=== PATIENT | male | born 1985 | race African-American/Black ===

== ENCOUNTER 2021-09-02 00:45 | Inpatient (IN) | payer SELFPAY ==
[~2021-09-02] VITALS: Ht 175.3 cm; Wt 74.9 kg
[2021-09-02] MEDS ORDERED: ONDANSETRON PF 4 MG/2 ML VIAL. ONE (00:59)
[2021-09-02] MEDS ORDERED: ONDANSETRON PF 4 MG/2 ML VIAL. IVP ONE (01:00)
[2021-09-02] MEDS ORDERED: IV NORMAL SALINE 1000ML BAG 1,000 ML IV ONE ×2 (01:00→02:00)
--- NOTE | 2021-09-02 01:13 | PHYS DOC ---
Past Medical History Past Medical History: COPD, Diabetes-Type I Alcohol Use: Occasionally General Adult EDM: Chief Complaint: SEIZURE HPI: HPI: Patient is a 35 year old male who was brought here by EMS from home after he was found unresponsive on the floor. Patient'S girlfriend said patient was on the floor acting like he was having a seizure. He was pale and sweaty, patient said he was in his bed tonight, he felt hot flushed. He thought that his blood sugar was low so he got up to go to the kitchen to get something to eat when he woke up from the floor. Patient is complaining of right-sided facial pain, some pain inside his mouth. Patient denies any history of seizure disorder. Patient has history of diabetes, on insulin. EMS checked his blood sugar and it was 103. Patient said he had have nausea vomiting and diarrhea off and on for 1 week. Patient denies any cough or fever. Patient was vaccinated for COVID-19 3 months ago. Patient denies any abdominal pain patient said he drinking alcohol every day. Patient tried to drink some beer tonight at 9 PM but vomited everything. Review of Systems: Review of Systems: Constitutional: Denies fever or chills. [] Eyes: Denies change in visual acuity. [] HENT: Denies nasal congestion or sore throat. [] Respiratory: Denies cough or shortness of breath. [] Cardiovascular: Denies chest pain or edema. [] GI: Denies abdominal pain, positive for nausea vomiting diarrhea : Denies dysuria. [] Musculoskeletal: Denies back pain or joint pain. [] Integument: Denies rash. [] Neurologic: Denies headache, focal weakness or sensory changes. Positive for seizure history Endocrine: Denies polyuria or polydipsia. [] Lymphatic: Denies swollen glands. [] Psychiatric: Denies depression or anxiety. [] Heart Score: C/O Chest Pain: N/A Risk Factors: Risk Factors: DM, Current or recent (<one month) smoker, HTN, HLP, family history of CAD, obesity. Risk Scores: Score 0 - 3: 2.5% MACE over next 6 weeks - Discharge Home Score 4 - 6: 20.3% MACE over next 6 weeks - Admit for Clinical Observation Score 7 - 10: 72.7% MACE over next 6 weeks - Early Invasive Strategies Current Medications: Current Medications Medications (Trade) Dose Ordered Sig/Annamarie Start Time Stop Time Status Last Admin Dose Admin Ondansetron HCl (Zofran) 4 mg STK-MED ONCE 09/02/21 00:59 09/02/21 01:00 DC Sodium Chloride 1,000 ml @ 1,000 mls/hr 1X ONCE 09/02/21 01:00 09/02/21 01:59 09/02/21 01:09 1,000 MLS/HR Allergies: Allergies: Allergies Coded Allergies Type Severity Reaction Last Updated Verified No Known Drug Allergies 09/02/21 No Physical Exam: PE: Constitutional: Well developed, well nourished, no acute distress, non-toxic appearance. [] HENT: Normocephalic, atraumatic, bilateral external ears normal, oropharynx moist, no oral exudates, nose normal. Right anterior lateral tongue abrasion Eyes: PERRLA, EOMI, conjunctiva normal, no discharge. [] Neck: Normal range of motion, no tenderness, supple, no stridor. [] Cardiovascular: Sinus tachycardia, regular rhythm, no murmur [] Lungs & Thorax: Bilateral breath sounds clear to auscultation [] Abdomen: Bowel sounds normal, soft, no tenderness, no masses, no pulsatile masses. [] Skin: Warm, dry, no erythema, no rash. [] Back: No tenderness, no CVA tenderness. [] Extremities: No tenderness, no cyanosis, no clubbing, ROM intact, no edema. [] Neurologic: Alert and oriented X 3, normal motor function, normal sensory function, no focal deficits noted. [] Psychologic: Affect normal, judgement normal, mood normal. [] Current Patient Data: Labs: Laboratory Tests Test 09/02/21 01:10 09/02/21 02:16 09/02/21 03:55 White Blood Count 10.1 x10^3/uL Red Blood Count 4.60 x10^6/uL Hemoglobin 13.8 g/dL Hematocrit 40.6 % Mean Corpuscular Volume 88 fL Mean Corpuscular Hemoglobin 30 pg Mean Corpuscular Hemoglobin Concent 34 g/dL Red Cell Distribution Width 12.7 % Platelet Count 247 x10^3/uL Neutrophils (%) (Auto) 74 % Lymphocytes (%) (Auto) 18 % Monocytes (%) (Auto) 6 % Eosinophils (%) (Auto) 2 % Basophils (%) (Auto) 0 % Neutrophils # (Auto) 7.5 x10^3/uL Lymphocytes # (Auto) 1.9 x10^3/uL Monocytes # (Auto) 0.6 x10^3/uL Eosinophils # (Auto) 0.2 x10^3/uL Basophils # (Auto) 0.0 x10^3/uL Sodium Level 138 mmol/L Potassium Level 3.8 mmol/L Chloride Level 101 mmol/L Carbon Dioxide Level 27 mmol/L Anion Gap 10 Blood Urea Nitrogen 20 mg/dL Creatinine 1.2 mg/dL Estimated GFR (Cockcroft-Gault) 83.4 BUN/Creatinine Ratio 17 Glucose Level 97 mg/dL Calcium Level 9.2 mg/dL Magnesium Level 1.8 mg/dL Total Bilirubin 0.3 mg/dL Aspartate Amino Transf (AST/SGOT) 33 U/L Alanine Aminotransferase (ALT/SGPT) 41 U/L Alkaline Phosphatase 70 U/L Troponin I Quantitative < 0.017 ng/mL CU-[id number]-[id number]-Type Natriuretic Peptide 27 pg/mL Total Protein 7.7 g/dL Albumin 3.9 g/dL Albumin/Globulin Ratio 1.0 Ethyl Alcohol Level < 10 mg/dL SARS-CoV-2 Antigen (Rapid) Negative Urine Opiates Screen Neg Urine Methadone Screen Neg Urine Barbiturates Neg Urine Phencyclidine Screen Neg Urine Amphetamine/Methamphetamine Neg Urine Benzodiazepines Screen Neg Urine Cocaine Screen Pos Urine Cannabinoids Screen Pos Urine Ethyl Alcohol Neg Current Medications Medications (Trade) Dose Ordered Sig/Annamarie Route PRN Reason Start Time Stop Time Status Last Admin Dose Admin Ondansetron HCl (Zofran) 8 mg 1X ONCE IVP 09/02/21 01:00 09/02/21 01:01 DC 09/02/21 01:10 Sodium Chloride 1,000 ml @ 1,000 mls/hr 1X ONCE IV 09/02/21 01:00 09/02/21 01:59 DC 09/02/21 01:09 Ondansetron HCl (Zofran) 4 mg STK-MED ONCE .ROUTE 09/02/21 00:59 09/02/21 01:00 DC Sodium Chloride 1,000 ml @ 1,000 mls/hr 1X ONCE IV 09/02/21 02:00 09/02/21 02:59 DC 09/02/21 02:13 Lorazepam (Ativan Inj) 2 mg 1X ONCE IVP 09/02/21 03:45 09/02/21 03:46 DC 09/02/21 04:00 Multivitamins 10 ml/Thiamine HCl 100 mg/Folic Acid 1 mg/Sodium Chloride 1,011.2 ml @ 1,000.088 mls/hr 1X ONCE IV 09/02/21 04:00 09/02/21 05:00 09/02/21 04:05 Ondansetron HCl (Zofran) 4 mg PRN Q8HRS PRN IVP NAUSEA/VOMITING 09/02/21 04:00 09/03/21 03:59 Laboratory Tests Test 09/02/21 01:10 White Blood Count 10.1 x10^3/uL Red Blood Count 4.60 x10^6/uL Hemoglobin 13.8 g/dL Hematocrit 40.6 % Mean Corpuscular Volume 88 fL Mean Corpuscular Hemoglobin 30 pg Mean Corpuscular Hemoglobin Concent 34 g/dL Red Cell Distribution Width 12.7 % Platelet Count 247 x10^3/uL Neutrophils (%) (Auto) 74 % Lymphocytes (%) (Auto) 18 % Monocytes (%) (Auto) 6 % Eosinophils (%) (Auto) 2 % Basophils (%) (Auto) 0 % Neutrophils # (Auto) 7.5 x10^3/uL Lymphocytes # (Auto) 1.9 x10^3/uL Monocytes # (Auto) 0.6 x10^3/uL Eosinophils # (Auto) 0.2 x10^3/uL Basophils # (Auto) 0.0 x10^3/uL Sodium Level 138 mmol/L Potassium Level 3.8 mmol/L Chloride Level 101 mmol/L Carbon Dioxide Level 27 mmol/L Anion Gap 10 Blood Urea Nitrogen 20 mg/dL Creatinine 1.2 mg/dL Estimated GFR (Cockcroft-Gault) 83.4 BUN/Creatinine Ratio 17 Glucose Level 97 mg/dL Calcium Level 9.2 mg/dL Magnesium Level 1.8 mg/dL Total Bilirubin 0.3 mg/dL Aspartate Amino Transf (AST/SGOT) 33 U/L Alanine Aminotransferase (ALT/SGPT) 41 U/L Alkaline Phosphatase 70 U/L Troponin I Quantitative < 0.017 ng/mL [id number]-Type Natriuretic Peptide 27 pg/mL Total Protein 7.7 g/dL Albumin 3.9 g/dL Albumin/Globulin Ratio 1.0 Ethyl Alcohol Level < 10 mg/dL Current Medications Medications (Trade) Dose Ordered Sig/Annamarie Route PRN Reason Start Time Stop Time Status Last Admin Dose Admin Ondansetron HCl (Zofran) 8 mg 1X ONCE IVP 09/02/21 01:00 09/02/21 01:01 DC 09/02/21 01:10 Sodium Chloride 1,000 ml @ 1,000 mls/hr 1X ONCE IV 09/02/21 01:00 09/02/21 01:59 09/02/21 01:09 Ondansetron HCl (Zofran) 4 mg STK-MED ONCE .ROUTE 09/02/21 00:59 09/02/21 01:00 DC Sodium Chloride 1,000 ml @ 1,000 mls/hr 1X ONCE IV 09/02/21 02:00 09/02/21 02:59 UNV EKG: EKG: EKG was done, heart rate 103 bpm, sinus TACHYCARDIA rhythm, no ST segment ELEVATION. Radiology/Procedures: Radiology/Procedures: [][facility] [address] [place] [address] IMAGING REPORT Signed PATIENT: KAY PEMBERTON ACCOUNT: [id number] : 1985 LOCATION: ER AGE: 35 SEX: M EXAM STATUS: REG ER ORD. PHYSICIAN: MONIKA ESTRADA DO REASON: had syncope, right side facial pain PROCEDURE: CT MAXILLOFACIAL WO CONTRAST CT HEAD AND C-SPINE WO, CT MAXILLOFACIAL WITHOUT CONTRAST dated 09/02/2021 1:24 AM. Comparison: None. Clinical Indication: Reason: had a syncope, fell down, hit right side head, headache, neck pain / Spl. Instructions: / History: HEAD AND NECK PAIN Technical factors: Contiguous 5 mm axial images of the head were obtained from the skullbase to the vertex. No contrast was administered. In addition, 3 mm axi al images of the cervical spine and maxillofacial bones were acquired with thin cut coronal and sagittal reconstructions. One or more of the following individualized dose reduction techniques were utilized for this examination: 1. Automated exposure control 2. Adjustment of the mA and/or kV according to patient size 3. Use of iterative reconstruction technique Findings head: Ventricles and sulci are within normal limits for age. No evidence of ventricular shift or mass effect. Brain parenchyma is of normal attenuation. There is no evidence of hemorrhage or extra-axial collection. No apparent calvarial abnormality.. IMPRESSION HEAD: No evidence of acute intracranial abnormality. Findings maxillofacial: Orbital mortensen and maxillary mortensen are intact. No displaced facial fracture. Zygomatic arches and mandible are intact. Nasal bones are intact. Paranasal sinuses are clear. Ostiomeatal units and infundibula are patent. Mastoid air cells and middle ears are clear. No significant soft tissue abnormality. IMPRESSION MAXILLOFACIAL: 1. No evidence of displaced facial fracture. Findings cervical spine: Images were acquired from the skull base to mid T3. There is straightening of the normal cervical lordosis, otherwise sagittal alignment is anatomic. Chloe tebral body heights are maintained. No prevertebral soft tissue swelling. Posterior elements are intact. No fractures are identified. Minimal multilevel uncovertebral spurring. No apparent focal disc herniation. The bony canal and foramen are adequate. No significant soft tissue abnormality. Limited images of lung apices are clear. IMPRESSION CERVICAL SPINE: No evidence of fracture or malalignment. Electronically signed by: Will Acosta MD (09/02/2021 1:50 AM) [facility] DICTATED and SIGNED BY: WILL ACOSTA MD DATE: 09/02/21 [id number] 0 Course & Med Decision Making: Course & Med Decision Making Pertinent Labs and Imaging studies reviewed. (See chart for details) Patient is a 35-year-old male who was brought here by EMS from home after she was found unresponsive on the floor having a seizure. Patient had been having nausea vomiting and diarrhea off and on for a week. Patient was not able to keep them down. Patient is an alcoholic, he did drink some alcohol yesterday but could not keep it down. Patient is most likely have alcohol withdrawal seizure. Patient also tested positive for marijuana and cocaine. Patient will be admitted to hospital for IV fluid and IV benzodiazepine. Dragon Disclaimer: Dragon Disclaimer: This electronic medical record was generated, in whole or in part, using a voice recognition dictation system. Departure Departure Impression: Primary Impression: Alcohol withdrawal seizure Additional Impressions: Gastroenteritis Substance abuse Disposition: ADMITTED INPATIENT Admitting Physician: ALFONSO (Dr. JUSTINA GUTIERREZ) Condition: IMPROVED Referrals: NO PCP (PCP) MONIKA ESTRADA DO Sep 02, 2021 01:13
[2021-09-02 01:21] LABS: BASO % 0 % (0-3); EOS # 0.2 x10^3/uL (0.0-0.7); EOS % 2 % (0-3); HEMATOCRIT 40.6 % (39.0-53.0); HEMOGLOBIN 13.8 g/dL (13.0-17.5); LYMPH # 1.9 x10^3/uL (1.0-4.8); LYMPH % 18 % (24-48); MEAN CORPUSCULAR HEMOGLOBIN 30 pg (25-35); MEAN CORPUSCULAR HGB CONC 34 g/dL (31-37); MEAN CORPUSCULAR VOLUME 88 fL (79-100); MONO # 0.6 x10^3/uL (0.0-1.1); MONO % 6 % (0-9); NEUT # 7.5 x10^3/uL (1.8-7.7); NEUT % 74 % (31-73); PLATELET COUNT 247 x10^3/uL (140-400); RED CELL DISTRIBUTION WIDTH 12.7 % (11.5-14.5); WHITE BLOOD COUNT 10.1 x10^3/uL (4.0-11.0)
[2021-09-02 01:30] LABS: CALCIUM 9.2 mg/dL (8.5-10.1); CREATININE 1.2 mg/dL (0.7-1.3); GFR 83.4; POTASSIUM 3.8 mmol/L (3.5-5.1)
[2021-09-02 01:37] LABS: ALBUMIN 3.9 g/dL (3.4-5.0); MAGNESIUM 1.8 mg/dL (1.8-2.4); TOTAL BILIRUBIN 0.3 mg/dL (0.2-1.0); TOTAL PROTEIN 7.7 g/dL (6.4-8.2)
--- NOTE | 2021-09-02 01:53 | RAD ---
CT HEAD AND C-SPINE WO, CT MAXILLOFACIAL WITHOUT CONTRAST dated 09/02/2021 1:24 AM. Comparison: None. Clinical Indication: Reason: had a syncope, fell down, hit right side head, headache, neck pain / Spl . Instructions: / History: HEAD AND NECK PAIN Technical factors: Contiguous 5 mm axial images of the head were obtained from the skullbase to the v ertex. No contrast was administered. In addition, 3 mm axial images of the cervical spine and maxillo facial bones were acquired with thin cut coronal and sagittal reconstructions. One or more of the following individualized dose reduction techniques were utilized for this examinat ion: 1. Automated exposure control 2. Adjustment of the mA and/or kV according to patient size 3. Use of iterative reconstruction technique Findings head: Ventricles and sulci are within normal limits for age. No evidence of ventricular shift or mass effec t. Brain parenchyma is of normal attenuation. There is no evidence of hemorrhage or extra-axial colle ction. No apparent calvarial abnormality.. IMPRESSION HEAD: No evidence of acute intracranial abnormality. Findings maxillofacial: Orbital mortensen and maxillary mortensen are intact. No displaced facial fracture. Zygomatic arches and sushant ible are intact. Nasal bones are intact. Paranasal sinuses are clear. Ostiomeatal units and infundibula are patent. Mastoid air cells and midd le ears are clear. No significant soft tissue abnormality. IMPRESSION MAXILLOFACIAL: 1. No evidence of displaced facial fracture. Findings cervical spine: Images were acquired from the skull base to mid T3. There is straightening of the normal cervical jonathan dosis, otherwise sagittal alignment is anatomic. Vertebral body heights are maintained. No prevertebr al soft tissue swelling. Posterior elements are intact. No fractures are identified. Minimal multilevel uncovertebral spurring. No apparent focal disc herniation. The bony canal and fora men are adequate. No significant soft tissue abnormality. Limited images of lung apices are clear. IMPRESSION CERVICAL SPINE: No evidence of fracture or malalignment. Electronically signed by: Will Fish MD (09/02/2021 1:50 AM) [facility]
[2021-09-02] MEDS ORDERED: ONDANSETRON PF 4 MG/2 ML VIAL. IVP PRN ×2 (04:00→08:30)
[2021-09-02] MEDS ORDERED: MULTIVIT INFUSN,ADULT 4,VIT K 10 ML, THIAMINE INJ 100 MG, FOLIC ACID INJ 1 MG in IV NOR... IV ONE (04:00)
[2021-09-02 04:09] LABS: AMPHETAMINE/METHAMPHETAMINE NEG (NEG); BARBITURATES NEG (NEG); BENZODIAZEPINES NEG (NEG); CANNABINOIDS POS (NEG); COCAINE POS (NEG); METHADONE NEG (NEG); OPIATES NEG (NEG); PHENCYCLIDINE NEG (NEG)
[2021-09-02 06:15] VITALS: BP 110/72
--- NOTE | 2021-09-02 06:37 | EKG ---
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
[2021-09-02] MEDS ORDERED: INSU100V6 SQ (06:41)
--- NOTE | 2021-09-02 08:24 | PDOC1 ---
History and Physical Date of Service: DOS: DATE: 09/02/21 TIME: 08:21 Chief Complaint: Chief Complain: Found unresponsive History of Present Illness: HPI: History obtained from discussion with the ED physician and chart review: 35-year-old male with past medical history of diabetes mellitus type 1 who was found unresponsive on the floor by his girlfriend. Apparently at patient appeared to having a seizure. Before the episode patient stated he measured his sugars and was 103. He denies any fevers, nausea vomiting, diarrhea, abdominal pain, chest pain or shortness of breath. Denies any history of seizure. He is on insulin and he does take his uncles insulin but he does not know how much. He measures his sugars twice a day. He is unable to provide much history of his diabetic management and course. He was vaccinated for Covid 3 months ago. Patient does endorse drinking alcohol and smoking marijuana. Last alcoholic beverage was last night at 9 PM but he vomited afterwards. Past Medical/Surgical History: PMH/PSH: Past Medical History: COPD, Diabetes-Type I Allergies: Allergies: Coded Allergies: No Known Drug Allergies (Unverified , 09/02/21) Family History: Family History: Reviewed with no relevant findings Social History: Social History: Occasional alcohol use. Denies tobacco or drug abuse. Current Medications: Current Medications Current Medications Ondansetron HCl (Zofran) 8 mg 1X ONCE IVP Last administered on 09/02/21at 01:10; Start 09/02/21 at 01:00; Stop 09/02/21 at 01:01; Status DC Sodium Chloride 1,000 ml @ 1,000 mls/hr 1X ONCE IV Last administered on 09/02/21at 01:09; Start 09/02/21 at 01:00; Stop 09/02/21 at 01:59; Status DC Ondansetron HCl (Zofran) 4 mg STK-MED ONCE .ROUTE ; Start 09/02/21 at 00:59; Stop 09/02/21 at 01:00; Status DC Sodium Chloride 1,000 ml @ 1,000 mls/hr 1X ONCE IV Last administered on 09/02/21at 02:13; Start 09/02/21 at 02:00; Stop 09/02/21 at 02:59; Status DC Lorazepam (Ativan Inj) 2 mg 1X ONCE IVP Last administered on 09/02/21at 04:00; Start 09/02/21 at 03:45; Stop 09/02/21 at 03:46; Status DC Multivitamins 10 ml/Thiamine HCl 100 mg/Folic Acid 1 mg/Sodium Chloride 1,011.2 ml @ 1,000.088 mls/hr 1X ONCE IV Last administered on 09/02/21at 04:05; Start 09/02/21 at 04:00; Stop 09/02/21 at 05:00; Status DC Ondansetron HCl (Zofran) 4 mg PRN Q8HRS PRN IVP NAUSEA/VOMITING; Start 09/02/21 at 04:00; Stop 09/03/21 at 03:59 Active Scripts Active Reported Humalog (Insulin Lispro) 100 Unit/1 Ml Vial Unknown Dose SQ TIDWMEALS ROS: Review of Systems Review of System REVIEW OF SYSTEMS: GENERAL: Denies weakness SKIN: No bruising, hair changes or rashes. EYES: No blurred, double or loss of vision. NOSE AND THROAT: No history of nosebleeds, hoarseness or sore throat. HEART: No history of palpitations, chest pain or shortness of breath on exertion. LUNGS: Denies cough, hemoptysis, wheezing or shortness of breath. GASTROINTESTINAL: Positive for nausea vomiting GENITOURINARY: No history of frequency, urgency, hesitancy or nocturia. NEUROLOGIC: Denies history of numbness, tingling, or tremor. PSYCHIATRIC: No history of panic, anxiety or depression. ENDOCRINE: No history of heat or cold intolerance, polyuria or polydipsia. EXTREMITIES: Denies joint pain, pain on walking or stiffness. Physical Exam: Vital Signs: Vital Signs Date Time Temp Pulse Resp B/P (MAP) Pulse Ox O2 Delivery O2 Flow Rate FiO2 09/02/21 06:23 Room Air 09/02/21 06:15 98.2 97 18 110/72 (85) 96 98.2 Physcial Exam: General: Well developed, well nourished, no acute distress, well appearing HEENT: Pupils equally round and reactive to light, EOMI, no discharge, normal conjunctiva Neck: Supple, no nuchal rigidity, no JVD, trachea midline, no tenderness Cardiac: RRR, no murmurs, no gallops, no rubs Chest/Lungs: CTAB, no wheeze, no rhonchi, no crackles Abdomen: soft, non-distended, no guarding, no peritoneal signs, non-tender Back: No tenderness Extremities: no edema, pulses intact, non-tender,capillary refill <3 sec bilate ral upper and lower extremities, Neuro: Alert and oriented x 4, no focal deficits, normal speech Labs: Labs: Laboratory Tests Test 09/02/21 01:10 09/02/21 02:16 09/02/21 03:55 09/02/21 07:16 White Blood Count 10.1 x10^3/uL (4.0-11.0) Red Blood Count 4.60 x10^6/uL (4.30-5.70) Hemoglobin 13.8 g/dL (13.0-17.5) Hematocrit 40.6 % (39.0-53.0) Mean Corpuscular Volume 88 fL (79-100) Mean Corpuscular Hemoglobin 30 pg (25-35) Mean Corpuscular Hemoglobin Concent 34 g/dL (31-37) Red Cell Distribution Width 12.7 % (11.5-14.5) Platelet Count 247 x10^3/uL (140-400) Neutrophils (%) (Auto) 74 % (31-73) Lymphocytes (%) (Auto) 18 % (24-48) Monocytes (%) (Auto) 6 % (0-9) Eosinophils (%) (Auto) 2 % (0-3) Basophils (%) (Auto) 0 % (0-3) Neutrophils # (Auto) 7.5 x10^3/uL (1.8-7.7) Lymphocytes # (Auto) 1.9 x10^3/uL (1.0-4.8) Monocytes # (Auto) 0.6 x10^3/uL (0.0-1.1) Eosinophils # (Auto) 0.2 x10^3/uL (0.0-0.7) Basophils # (Auto) 0.0 x10^3/uL (0.0-0.2) Sodium Level 138 mmol/L (136-145) Potassium Level 3.8 mmol/L (3.5-5.1) Chloride Level 101 mmol/L (98-107) Carbon Dioxide Level 27 mmol/L (21-32) Anion Gap 10 (6-14) Blood Urea Nitrogen 20 mg/dL (8-26) Creatinine 1.2 mg/dL (0.7-1.3) Estimated GFR (Cockcroft-Gault) 83.4 BUN/Creatinine Ratio 17 (6-20) Glucose Level 97 mg/dL (70-99) Calcium Level 9.2 mg/dL (8.5-10.1) Magnesium Level 1.8 mg/dL (1.8-2.4) Total Bilirubin 0.3 mg/dL (0.2-1.0) Aspartate Amino Transf (AST/SGOT) 33 U/L (15-37) Alanine Aminotransferase (ALT/SGPT) 41 U/L (16-63) Alkaline Phosphatase 70 U/L (46-116) Troponin I Quantitative < 0.017 ng/mL (0.000-0.055) PZ-Yrb-J-Type Natriuretic Peptide 27 pg/mL (0-124) Total Protein 7.7 g/dL (6.4-8.2) Albumin 3.9 g/dL (3.4-5.0) Albumin/Globulin Ratio 1.0 (1.0-1.7) Ethyl Alcohol Level < 10 mg/dL (0-10) SARS-CoV-2 Antigen (Rapid) Negative (NEGATIVE) Urine Opiates Screen Neg (NEG) Urine Methadone Screen Neg (NEG) Urine Barbiturates Neg (NEG) Urine Phencyclidine Screen Neg (NEG) Urine Amphetamine/Methamphetamine Neg (NEG) Urine Benzodiazepines Screen Neg (NEG) Urine Cocaine Screen Pos (NEG) Urine Cannabinoids Screen Pos (NEG) Urine Ethyl Alcohol Neg (NEG) Glucose (Fingerstick) 161 mg/dL (70-99) Laboratory Tests Test 09/02/21 01:10 09/02/21 02:16 09/02/21 03:55 09/02/21 07:16 White Blood Count 10.1 x10^3/uL (4.0-11.0) Red Blood Count 4.60 x10^6/uL (4.30-5.70) Hemoglobin 13.8 g/dL (13.0-17.5) Hematocrit 40.6 % (39.0-53.0) Mean Corpuscular Volume 88 fL (79-100) Mean Corpuscular Hemoglobin 30 pg (25-35) Mean Corpuscular Hemoglobin Concent 34 g/dL (31-37) Red Cell Distribution Width 12.7 % (11.5-14.5) Platelet Count 247 x10^3/uL (140-400) Neutrophils (%) (Auto) 74 % (31-73) Lymphocytes (%) (Auto) 18 % (24-48) Monocytes (%) (Auto) 6 % (0-9) Eosinophils (%) (Auto) 2 % (0-3) Basophils (%) (Auto) 0 % (0-3) Neutrophils # (Auto) 7.5 x10^3/uL (1.8-7.7) Lymphocytes # (Auto) 1.9 x10^3/uL (1.0-4.8) Monocytes # (Auto) 0.6 x10^3/uL (0.0-1.1) Eosinophils # (Auto) 0.2 x10^3/uL (0.0-0.7) Basophils # (Auto) 0.0 x10^3/uL (0.0-0.2) Sodium Level 138 mmol/L (136-145) Potassium Level 3.8 mmol/L (3.5-5.1) Chloride Level 101 mmol/L (98-107) Carbon Dioxide Level 27 mmol/L (21-32) Anion Gap 10 (6-14) Blood Urea Nitrogen 20 mg/dL (8-26) Creatinine 1.2 mg/dL (0.7-1.3) Estimated GFR (Cockcroft-Gault) 83.4 BUN/Creatinine Ratio 17 (6-20) Glucose Level 97 mg/dL (70-99) Calcium Level 9.2 mg/dL (8.5-10.1) Magnesium Level 1.8 mg/dL (1.8-2.4) Total Bilirubin 0.3 mg/dL (0.2-1.0) Aspartate Amino Transf (AST/SGOT) 33 U/L (15-37) Alanine Aminotransferase (ALT/SGPT) 41 U/L (16-63) Alkaline Phosphatase 70 U/L (46-116) Troponin I Quantitative < 0.017 ng/mL (0.000-0.055) XM-Egg-S-Type Natriuretic Peptide 27 pg/mL (0-124) Total Protein 7.7 g/dL (6.4-8.2) Albumin 3.9 g/dL (3.4-5.0) Albumin/Globulin Ratio 1.0 (1.0-1.7) Ethyl Alcohol Level < 10 mg/dL (0-10) SARS-CoV-2 Antigen (Rapid) Negative (NEGATIVE) Urine Opiates Screen Neg (NEG) Urine Methadone Screen Neg (NEG) Urine Barbiturates Neg (NEG) Urine Phencyclidine Screen Neg (NEG) Urine Amphetamine/Methamphetamine Neg (NEG) Urine Benzodiazepines Screen Neg (NEG) Urine Cocaine Screen Pos (NEG) Urine Cannabinoids Screen Pos (NEG) Urine Ethyl Alcohol Neg (NEG) Glucose (Fingerstick) 161 mg/dL (70-99) Images: Images PROCEDURE: CT HEAD AND CERVICAL SPINE WO CT HEAD AND C-SPINE WO, CT MAXILLOFACIAL WITHOUT CONTRAST dated 09/02/2021 1:24 AM. Comparison: None. Clinical Indication: Reason: had a syncope, fell down, hit right side head, headache, neck pain / Spl. Instructions: / History: HEAD AND NECK PAIN Technical factors: Contiguous 5 mm axial images of the head were obtained from the skullbase to the vertex. No contrast was administered. In addition, 3 mm axial images of the cervical spine and maxillofacial bones were acquired with thin cut coronal and sagittal reconstructions. One or more of the following individualized dose reduction techniques were u tilized for this examination: 1. Automated exposure control 2. Adjustment of the mA and/or kV according to patient size 3. Use of iterative reconstruction technique Findings head: Ventricles and sulci are within normal limits for age. No evidence of ventricular shift or mass effect. Brain parenchyma is of normal attenuation. There is no evidence of hemorrhage or extra-axial collection. No apparent calvarial abnormality.. IMPRESSION HEAD: No evidence of acute intracranial abnormality. Findings maxillofacial: Orbital mortensen and maxillary mortensen are intact. No displaced facial fracture. Zygomatic arches and mandible are intact. Nasal bones are intact. Paranasal sinuses are clear. Ostiomeatal units and infundibula are patent. Mastoid air cells and middle ears are clear. No significant soft tissue abnormality. IMPRESSION MAXILLOFACIAL: 1. No evidence of displaced facial fracture. Findings cervical spine: Images were acquired from the skull base to mid T3. There is straightening of the normal cervical lordosis, otherwise sagittal alignment is anatomic. Vertebral body heights are maintained. No prevertebral soft tissue swelling. Posterior elements are intact. No fractures are identified. Minimal multilevel uncovertebral spurring. No apparent focal disc herniation. The bony canal and foramen are adequate. No significant soft tissue abnormality. Limited images of lung apices are clear. IMPRESSION CERVICAL SPINE: No evidence of fracture or malalignment. Assessment/Plan Assessment/Plan Acute toxic encephalopathy Seizure activity Polysubstance abuse Admit to hospitalist for further management We will consider neurology consult PAT evaluation Observe Seizure precautions SCD for DVT prophylaxis Regular diet CODE STATUS full Discussed with RN and SW Disposition inpatient management as above DPOA: Girlfriend Justifications for Admission Other Justification JESSICA WANG MD Sep 02, 2021 08:24
[2021-09-02] MEDS ORDERED: SENNOSIDES 8.6 MG TABLET PO PRN (08:30)
[2021-09-02] MEDS ORDERED: LORazepam 0.5 MG TABLET PO PRN (08:30)
[2021-09-02] MEDS ORDERED: DEXTROSE 50% 25 GM / 50ML DISP.SYRIN. IV PRN ×2 (08:30→11:15)
[2021-09-02] MEDS ORDERED: ZOLPIDEM 5 MG TABLET. PO PRN (08:30)
[2021-09-02] MEDS ORDERED: ACETAMINOPHEN 325 MG TABLET. PO PRN (08:30)
[2021-09-02] MEDS ORDERED: PROCHLORPERAZINE 10 MG/2 ML VIAL. IV PRN (08:30)
[2021-09-02] MEDS ORDERED: DOCUSATE SODIUM 100 MG CAPSULE. PO PRN (08:30)
--- NOTE | 2021-09-02 10:43 | NUR ---
SW following. Discussed with RN, pt from home with girlfriend, room air, ada diet. Rapid COVID-19 negative, PCR pending. PAT consulted for ETOH and Cocaine. Neuro consulted. Med Assist following for self pay status. SW will continue to follow.
[2021-09-02 11:00] VITALS: BP 141/92
[2021-09-02] MEDS: INSULIN LISPRO 300 UNITS/3 ML VIAL. SQ SCH ×2 (12:24→17:25)
[2021-09-02 15:00] VITALS: BP 106/63
--- NOTE | 2021-09-02 15:35 | PDOC2 ---
NEUROLOGY CONSULT Date of Service DOS: DATE: 09/02/21 TIME: 15:27 Reason for Consult Reason for Consult: Seizure Referring Physician Referring Physician: Dr. Pabon Source Source: Chart review, Patient History of Present Illness History of Present Illness The patient is a 35-year-old right-handed male with history of type 1 diabetes, whose girlfriend found him unresponsive yesterday afternoon lying on the floor and having a seizure. He measured his sugars just before and it was 103. He has no prior history of seizures. He does drink alcohol but says he only has 1 beer or glass of wine a night at most, his last beverage was the night before at 9 PM but he vomited afterwards. For the previous week he has been having some abdominal pain and diarrhea. There is no history of head injury. He says that he was sweaty and tremulous yesterday but feels much better now. His abdominal symptoms are better as well Past Medical History Psych: Addictions Endocrine: Diabetes (Type I) Past Surgical History Past Surgical History: No pertinent history Family History Family History: No pertinent hx (Negative for seizures) Social History Social History Has a girlfriend, alcohol use as above, also street drugs, occasional tobacco, currently unemployed Current Medications Current Medications Current Medications Ondansetron HCl (Zofran) 8 mg 1X ONCE IVP Last administered on 09/02/21at 01:10; Start 09/02/21 at 01:00; Stop 09/02/21 at 01:01; Status DC Sodium Chloride 1,000 ml @ 1,000 mls/hr 1X ONCE IV Last administered on 09/02/21at 01:09; Start 09/02/21 at 01:00; Stop 09/02/21 at 01:59; Status DC Ondansetron HCl (Zofran) 4 mg STK-MED ONCE .ROUTE ; Start 09/02/21 at 00:59; Stop 09/02/21 at 01:00; Status DC Sodium Chloride 1,000 ml @ 1,000 mls/hr 1X ONCE IV Last administered on 09/02/21at 02:13; Start 09/02/21 at 02:00; Stop 09/02/21 at 02:59; Status DC Lorazepam (Ativan Inj) 2 mg 1X ONCE IVP Last administered on 09/02/21at 04:00; Start 09/02/21 at 03:45; Stop 09/02/21 at 03:46; Status DC Multivitamins 10 ml/Thiamine HCl 100 mg/Folic Acid 1 mg/Sodium Chloride 1,011.2 ml @ 1,000.088 mls/hr 1X ONCE IV Last administered on 09/02/21at 04:05; Start 09/02/21 at 04:00; Stop 09/02/21 at 05:00; Status DC Ondansetron HCl (Zofran) 4 mg PRN Q8HRS PRN IVP NAUSEA/VOMITING; Start 09/02/21 at 04:00; Stop 09/02/21 at 13:29; Status DC Sennosides (Senna) 17.2 mg PRN BID PRN PO CONSTIPATION; Start 09/02/21 at 08:30 Docusate Sodium (Colace) 100 mg PRN DAILY PRN PO HARD STOOLS; Start 09/02/21 at 08:30 Ondansetron HCl (Zofran) 4 mg PRN Q6HRS PRN IVP NAUSEA/VOMITING, 1ST CHOICE; Start 09/02/21 at 08:30 Dextrose (Dextrose 50%-Water Syringe) 12.5 gm PRN Q15MIN PRN IV SEE COMMENTS; Start 09/02/21 at 08:30; Stop 09/02/21 at 13:30; Status DC Acetaminophen (Tylenol) 650 mg PRN Q4HRS PRN PO TEMP OVER 100.4F OR MILD PAIN; Start 09/02/21 at 08:30 Lorazepam (Ativan) 0.5 mg PRN Q6HRS PRN PO ANXIETY / AGITATION; Start 09/02/21 at 08:30 Lorazepam (Ativan Inj) 0.25 mg PRN Q4HRS PRN IV ANXIETY / AGITATION; Start 09/02/21 at 08:30 Prochlorperazine Edisylate (Compazine) 10 mg PRN Q6HRS PRN IV NAUSEA/VOMITING- 2ND CHOICE; Start 09/02/21 at 08:30 Zolpidem Tartrate (Ambien) 2.5 mg PRN QHS PRN PO INSOMNIA; Start 09/02/21 at 08:30 Insulin Human Lispro (HumaLOG) 0-7 UNITS TIDWMEALS SQ Last administered on 09/02/21at 12:24; Start 09/02/21 at 12:00 Dextrose (Dextrose 50%-Water Syringe) 12.5 gm PRN Q15MIN PRN IV SEE COMMENTS; Start 09/02/21 at 11:15 Insulin Glargine (Lantus Syringe) 10 unit BID SQ ; Start 09/02/21 at 21:00 Thiamine Mononitrate (Vitamin B-1) 100 mg DAILY PO ; Start 09/03/21 at 09:00 Folic Acid (Folic Acid) 1 mg DAILY PO ; Start 09/03/21 at 09:00 Active Scripts Active Reported Humalog (Insulin Lispro) 100 Unit/1 Ml Vial Unknown Dose SQ TIDWMEALS Allergies Allergies: Coded Allergies: No Known Drug Allergies (Unverified , 09/02/21) ROS Review of System Negative for fever, chills, weight loss, shortness of breath, chest pain, indigestion, hematochezia, melena, and dysuria. Full 14-point review of systems is negative. Physical Exam Physical Examination General: Well-developed, well-nourished black male in no acute distress HEENT: Normocephalic andatraumatic. Temporal arteriespulsatile and nontender. Neck: Supple without bruit, no meningismus Musculoskeletal: Stability:see neurologic. Gait exam:see neurologic. Tone:see neurologic.Strength:see neurologic. Neurological: Mental Status:intact, orientation, memory, attention span/concentration, language, fund of knowledge normal. CIWA score 0. Cranial Nerves:Pupils equal and reactive to light, extraocular movements areintact, visual jiménez are full to confrontation. Facial sensation is normal. There is no facial asymmetry. Vestibulo-ocular reflex is intact. Palate elevates and tongue protrudes in midline. All other cranial related problems are negative except as mentioned before.Reflexes:2+ and symmetric with flexor plantar responses. Motor:5/5 strength with normal tone and bulk. Coordination:Finger-nose finger and [id number] testing are normal. Rapid alternating movements and fine finger movements are intact. Gait:Normal, including tandem. Sensory:Normal pinprick, vibration, light touch, proprioception. Vitals VITALS Vital Signs Date Time Temp Pulse Resp B/P (MAP) Pulse Ox O2 Delivery O2 Flow Rate FiO2 09/02/21 15:00 97.8 60 18 106/63 (77) 92 Room Air 97.8 Labs Labs Laboratory Tests Test 09/02/21 01:10 09/02/21 02:16 09/02/21 03:55 09/02/21 07:16 White Blood Count 10.1 x10^3/uL (4.0-11.0) Red Blood Count 4.60 x10^6/uL (4.30-5.70) Hemoglobin 13.8 g/dL (13.0-17.5) Hematocrit 40.6 % (39.0-53.0) Mean Corpuscular Volume 88 fL (79-100) Mean Corpuscular Hemoglobin 30 pg (25-35) Mean Corpuscular Hemoglobin Concent 34 g/dL (31-37) Red Cell Distribution Width 12.7 % (11.5-14.5) Platelet Count 247 x10^3/uL (140-400) Neutrophils (%) (Auto) 74 % (31-73) Lymphocytes (%) (Auto) 18 % (24-48) Monocytes (%) (Auto) 6 % (0-9) Eosinophils (%) (Auto) 2 % (0-3) Basophils (%) (Auto) 0 % (0-3) Neutrophils # (Auto) 7.5 x10^3/uL (1.8-7.7) Lymphocytes # (Auto) 1.9 x10^3/uL (1.0-4.8) Monocytes # (Auto) 0.6 x10^3/uL (0.0-1.1) Eosinophils # (Auto) 0.2 x10^3/uL (0.0-0.7) Basophils # (Auto) 0.0 x10^3/uL (0.0-0.2) Sodium Level 138 mmol/L (136-145) Potassium Level 3.8 mmol/L (3.5-5.1) Chloride Level 101 mmol/L (98-107) Carbon Dioxide Level 27 mmol/L (21-32) Anion Gap 10 (6-14) Blood Urea Nitrogen 20 mg/dL (8-26) Creatinine 1.2 mg/dL (0.7-1.3) Estimated GFR (Cockcroft-Gault) 83.4 BUN/Creatinine Ratio 17 (6-20) Glucose Level 97 mg/dL (70-99) Calcium Level 9.2 mg/dL (8.5-10.1) Magnesium Level 1.8 mg/dL (1.8-2.4) Total Bilirubin 0.3 mg/dL (0.2-1.0) Aspartate Amino Transf (AST/SGOT) 33 U/L (15-37) Alanine Aminotransferase (ALT/SGPT) 41 U/L (16-63) Alkaline Phosphatase 70 U/L (46-116) Troponin I Quantitative < 0.017 ng/mL (0.000-0.055) UY-Alj-S-Type Natriuretic Peptide 27 pg/mL (0-124) Total Protein 7.7 g/dL (6.4-8.2) Albumin 3.9 g/dL (3.4-5.0) Albumin/Globulin Ratio 1.0 (1.0-1.7) Ethyl Alcohol Level < 10 mg/dL (0-10) SARS-CoV-2 RNA (LOTTIE) Negative (Negative) SARS-CoV-2 Antigen (Rapid) Negative (NEGATIVE) Urine Opiates Screen Neg (NEG) Urine Methadone Screen Neg (NEG) Urine Barbiturates Neg (NEG) Urine Phencyclidine Screen Neg (NEG) Urine Amphetamine/Methamphetamine Neg (NEG) Urine Benzodiazepines Screen Neg (NEG) Urine Cocaine Screen Pos (NEG) Urine Cannabinoids Screen Pos (NEG) Urine Ethyl Alcohol Neg (NEG) Glucose (Fingerstick) 161 mg/dL (70-99) Test 09/02/21 11:26 Glucose (Fingerstick) 258 mg/dL (70-99) Laboratory Tests Test 09/02/21 01:10 09/02/21 02:16 09/02/21 03:55 09/02/21 07:16 White Blood Count 10.1 x10^3/uL (4.0-11.0) Red Blood Count 4.60 x10^6/uL (4.30-5.70) Hemoglobin 13.8 g/dL (13.0-17.5) Hematocrit 40.6 % (39.0-53.0) Mean Corpuscular Volume 88 fL (79-100) Mean Corpuscular Hemoglobin 30 pg (25-35) Mean Corpuscular Hemoglobin Concent 34 g/dL (31-37) Red Cell Distribution Width 12.7 % (11.5-14.5) Platelet Count 247 x10^3/uL (140-400) Neutrophils (%) (Auto) 74 % (31-73) Lymphocytes (%) (Auto) 18 % (24-48) Monocytes (%) (Auto) 6 % (0-9) Eosinophils (%) (Auto) 2 % (0-3) Basophils (%) (Auto) 0 % (0-3) Neutrophils # (Auto) 7.5 x10^3/uL (1.8-7.7) Lymphocytes # (Auto) 1.9 x10^3/uL (1.0-4.8) Monocytes # (Auto) 0.6 x10^3/uL (0.0-1.1) Eosinophils # (Auto) 0.2 x10^3/uL (0.0-0.7) Basophils # (Auto) 0.0 x10^3/uL (0.0-0.2) Sodium Level 138 mmol/L (136-145) Potassium Level 3.8 mmol/L (3.5-5.1) Chloride Level 101 mmol/L (98-107) Carbon Dioxide Level 27 mmol/L (21-32) Anion Gap 10 (6-14) Blood Urea Nitrogen 20 mg/dL (8-26) Creatinine 1.2 mg/dL (0.7-1.3) Estimated GFR (Cockcroft-Gault) 83.4 BUN/Creatinine Ratio 17 (6-20) Glucose Level 97 mg/dL (70-99) Calcium Level 9.2 mg/dL (8.5-10.1) Magnesium Level 1.8 mg/dL (1.8-2.4) Total Bilirubin 0.3 mg/dL (0.2-1.0) Aspartate Amino Transf (AST/SGOT) 33 U/L (15-37) Alanine Aminotransferase (ALT/SGPT) 41 U/L (16-63) Alkaline Phosphatase 70 U/L (46-116) Troponin I Quantitative < 0.017 ng/mL (0.000-0.055) SY-Pbo-M-Type Natriuretic Peptide 27 pg/mL (0-124) Total Protein 7.7 g/dL (6.4-8.2) Albumin 3.9 g/dL (3.4-5.0) Albumin/Globulin Ratio 1.0 (1.0-1.7) Ethyl Alcohol Level < 10 mg/dL (0-10) SARS-CoV-2 RNA (LOTTIE) Negative (Negative) SARS-CoV-2 Antigen (Rapid) Negative (NEGATIVE) Urine Opiates Screen Neg (NEG) Urine Methadone Screen Neg (NEG) Urine Barbiturates Neg (NEG) Urine Phencyclidine Screen Neg (NEG) Urine Amphetamine/Methamphetamine Neg (NEG) Urine Benzodiazepines Screen Neg (NEG) Urine Cocaine Screen Pos (NEG) Urine Cannabinoids Screen Pos (NEG) Urine Ethyl Alcohol Neg (NEG) Glucose (Fingerstick) 161 mg/dL (70-99) Test 09/02/21 11:26 Glucose (Fingerstick) 258 mg/dL (70-99) Images Images CT HEAD AND C-SPINE WO, CT MAXILLOFACIAL WITHOUT CONTRAST dated 09/02/2021 1:24 AM. Comparison: None. Clinical Indication: Reason: had a syncope, fell down, hit right side head, headache, neck pain / Spl. Instructions: / History: HEAD AND NECK PAIN Technical factors: Contiguous 5 mm axial images of the head were obtained from the skullbase to the vertex. No contrast was administered. In addition, 3 mm axial images of the cervical spine and maxillofacial bones were acquired with thin cut coronal and sagittal reconstructions. One or more of the following individualized dose reduction techniques were utilized for this examination: 1. Automated exposure control 2. Adjustment of the mA and/or kV according to patient size 3. Use of iterative reconstruction technique Findings head: Ventricles and sulci are within normal limits for age. No evidence of ventricular shift or mass effect. Brain parenchyma is of normal attenuation. There is no evidence of hemorrhage or extra-axial collection. No apparent calvarial abnormality.. IMPRESSION HEAD: No evidence of acute intracranial abnormality. Findings maxillofacial: Orbital mortensen and maxillary mortensen are intact. No displaced facial fracture. Zygomatic arches and mandible are intact. Nasal bones are intact. Paranasal sinuses are clear. Ostiomeatal units and infundibula are patent. Mastoid air cells and middle ears are clear. No significant soft tissue abnormality. IMPRESSION MAXILLOFACIAL: 1. No evidence of displaced facial fracture. Findings cervical spine: Images were acquired from the skull base to mid T3. There is straightening of the normal cervical lordosis, otherwise sagittal alignment is anatomic. Vertebral body heights are maintained. No prevertebral soft tissue swelling. Posterior elements are intact. No fractures are identified. Minimal multilevel uncovertebral spurring. No apparent focal disc herniation. The bony canal and foramen are adequate. No significant soft tissue abnormality. Limited images of lung apices are clear. IMPRESSION CERVICAL SPINE: No evidence of fracture or malalignment. Assessment/Plan Assessment/Plan Impression: New seizure, may be due to alcohol withdrawal, urine drug screen also positive for cocaine and marijuana which could contribute. I told him about the positive drug screen, he denies any cocaine use, but does admit to marijuana Recommendations: MRI of the brain Electroencephalogram Hold on starting anticonvulsants Alcohol withdrawal protocol Psychiatric assessment team seeing patient Patient informed that he cannot drive until he has gone 6 months without a seizure. Advised patient to abstain from alcohol, marijuana, cocaine, and other street drugs Thank you for letting me help with the patient's care. JC MARINELLI MD Sep 02, 2021 15:35
[2021-09-02 19:00] VITALS: BP 134/88
[2021-09-02] MEDS: INSULIN GLARGINE SYRINGE. SQ SCH (20:57)
[2021-09-03 03:00] VITALS: BP 114/79
[2021-09-03 07:00] VITALS: BP 162/92
[2021-09-03 07:53] LABS: BASO % 0 % (0-3); EOS # 0.2 x10^3/uL (0.0-0.7); EOS % 4 % (0-3); HEMATOCRIT 37.5 % (39.0-53.0); HEMOGLOBIN 12.7 g/dL (13.0-17.5); LYMPH # 1.8 x10^3/uL (1.0-4.8); LYMPH % 44 % (24-48); MEAN CORPUSCULAR HEMOGLOBIN 30 pg (25-35); MEAN CORPUSCULAR HGB CONC 34 g/dL (31-37); MEAN CORPUSCULAR VOLUME 89 fL (79-100); MONO # 0.6 x10^3/uL (0.0-1.1); MONO % 15 % (0-9); NEUT # 1.5 x10^3/uL (1.8-7.7); NEUT % 37 % (31-73); PLATELET COUNT 224 x10^3/uL (140-400); RED BLOOD COUNT 4.22 x10^6/uL (4.30-5.70); RED CELL DISTRIBUTION WIDTH 12.7 % (11.5-14.5); WHITE BLOOD COUNT 4.2 x10^3/uL (4.0-11.0)
[2021-09-03 08:11] LABS: CALCIUM 8.3 mg/dL (8.5-10.1); GFR 102.9; MAGNESIUM 1.9 mg/dL (1.8-2.4); PHOSPHORUS 2.2 mg/dL (2.6-4.7); POTASSIUM 3.9 mmol/L (3.5-5.1)
[2021-09-03] MEDS: INSULIN LISPRO 300 UNITS/3 ML VIAL. SQ SCH ×2 (08:24→12:42)
--- NOTE | 2021-09-03 08:26 | EEG ---
DATE OF SERVICE: 09/03/2021 ELECTROENCEPHALOGRAM REPORT EEG NUMBER: [id number] performed on 09/03/2021 OBJECTIVE: The patient is a 35-year-old male with new seizures. DESCRIPTION: This is a digital study. Electrodes are placed according to the international 10-20 system. Bipolar and referential montages are available. Activation procedures typically include hyperventilation and intermittent photic stimulation. INTERPRETATION: The waking background consists of 9-10 Hz, 50-100 microvolt activity, symmetrically distributed over parietooccipital regions and reactive to eye opening. Hyperventilation and intermittent photic stimulation are noncontributory. Drowsiness was achieved. IMPRESSION: This electroencephalogram with the patient awake and drowsy is within normal limits. There is no focal, paroxysmal, or epileptiform activity. Thank you for letting us help with the patient's care. GIDEON DR: Leoncio TID: [id number]
[2021-09-03] MEDS ORDERED: FOLIC ACID 1 MG TABLET. PO SCH (09:00)
[2021-09-03] MEDS ORDERED: THIAMINE 100 MG TABLET. PO SCH (09:00)
[2021-09-03 11:00] VITALS: BP 134/93
--- NOTE | 2021-09-03 11:02 | NUR ---
SW following. Discussed with RNTwyla (SHAE) met with pt, pt provided with [facility] information. Pt not willing to schedule an appointment whilst in hospital but stated he would consider if he finds himself struggling. Pt had an MRI and EEG this morning. COVID-19 negative. Pt wanting to discharge today to get to an interview. Med Assist following for self pay status. SW will continue to follow.
[2021-09-03] MEDS: INSULIN GLARGINE SYRINGE. SQ SCH (11:35)
--- NOTE | 2021-09-03 12:01 | PDOC ---
PROGRESS NOTES Date of Service DATE: 09/03/21 TIME: 11:59 Assessment Problems Medical Problems: (1) Alcohol withdrawal seizure Status: Acute (2) Gastroenteritis Status: Acute (3) Substance abuse Status: Acute New seizure, may be due to alcohol withdrawal, urine drug screen also positive for cocaine and marijuana which could contribute. I told him about the positive drug screen, he denies any cocaine use, but does admit to marijuana. EEG is normal Plan Await MRI of the brain Hold on starting anticonvulsants Patient informed that he cannot drive until he has gone 6 months without a seizure. Advised patient to abstain from alcohol, marijuana, cocaine, and other street drugs Okay for discharge after MRI Follow-up with me as needed Subjective No complaints Objective Vital Signs Date Time Temp Pulse Resp B/P (MAP) Pulse Ox O2 Delivery O2 Flow Rate FiO2 09/03/21 08:00 Room Air 09/03/21 07:00 98.3 75 17 162/92 (115) 98 98.3 Intake and Output 09/03/21 07:00 Intake Total 1080 ml Output Total 1 ml Balance 1079 ml Intake Oral 1080 ml Output Urine Total 1 ml # Voids 2 PHYSICAL EXAM CIWA score 0 Alert. Oriented to time, place and person. PERRL. EOMI. CN: no focal findings. Muscle tone: normal. Muscle strength: 5/5 DTR: 2+ Plantar reflex: Flexor Gait: Normal. Sensory exam: no abnormal findings. No cerebellar signs elicited. Review of Relevant I have reviewed the following items leann (where applicable) has been applied. Labs Laboratory Tests Test 09/02/21 01:10 09/02/21 02:16 09/02/21 03:55 09/02/21 07:16 White Blood Count 10.1 x10^3/uL (4.0-11.0) Red Blood Count 4.60 x10^6/uL (4.30-5.70) Hemoglobin 13.8 g/dL (13.0-17.5) Hematocrit 40.6 % (39.0-53.0) Mean Corpuscular Volume 88 fL (79-100) Mean Corpuscular Hemoglobin 30 pg (25-35) Mean Corpuscular Hemoglobin Concent 34 g/dL (31-37) Red Cell Distribution Width 12.7 % (11.5-14.5) Platelet Count 247 x10^3/uL (140-400) Neutrophils (%) (Auto) 74 % (31-73) Lymphocytes (%) (Auto) 18 % (24-48) Monocytes (%) (Auto) 6 % (0-9) Eosinophils (%) (Auto) 2 % (0-3) Basophils (%) (Auto) 0 % (0-3) Neutrophils # (Auto) 7.5 x10^3/uL (1.8-7.7) Lymphocytes # (Auto) 1.9 x10^3/uL (1.0-4.8) Monocytes # (Auto) 0.6 x10^3/uL (0.0-1.1) Eosinophils # (Auto) 0.2 x10^3/uL (0.0-0.7) Basophils # (Auto) 0.0 x10^3/uL (0.0-0.2) Sodium Level 138 mmol/L (136-145) Potassium Level 3.8 mmol/L (3.5-5.1) Chloride Level 101 mmol/L (98-107) Carbon Dioxide Level 27 mmol/L (21-32) Anion Gap 10 (6-14) Blood Urea Nitrogen 20 mg/dL (8-26) Creatinine 1.2 mg/dL (0.7-1.3) Estimated GFR (Cockcroft-Gault) 83.4 BUN/Creatinine Ratio 17 (6-20) Glucose Level 97 mg/dL (70-99) Calcium Level 9.2 mg/dL (8.5-10.1) Magnesium Level 1.8 mg/dL (1.8-2.4) Total Bilirubin 0.3 mg/dL (0.2-1.0) Aspartate Amino Transf (AST/SGOT) 33 U/L (15-37) Alanine Aminotransferase (ALT/SGPT) 41 U/L (16-63) Alkaline Phosphatase 70 U/L (46-116) Troponin I Quantitative < 0.017 ng/mL (0.000-0.055) PI-Hze-V-Type Natriuretic Peptide 27 pg/mL (0-124) Total Protein 7.7 g/dL (6.4-8.2) Albumin 3.9 g/dL (3.4-5.0) Albumin/Globulin Ratio 1.0 (1.0-1.7) Ethyl Alcohol Level < 10 mg/dL (0-10) SARS-CoV-2 RNA (LOTTIE) Negative (Negative) SARS-CoV-2 Antigen (Rapid) Negative (NEGATIVE) Urine Opiates Screen Neg (NEG) Urine Methadone Screen Neg (NEG) Urine Barbiturates Neg (NEG) Urine Phencyclidine Screen Neg (NEG) Urine Amphetamine/Methamphetamine Neg (NEG) Urine Benzodiazepines Screen Neg (NEG) Urine Cocaine Screen Pos (NEG) Urine Cannabinoids Screen Pos (NEG) Urine Ethyl Alcohol Neg (NEG) Glucose (Fingerstick) 161 mg/dL (70-99) Test 09/02/21 11:26 09/02/21 16:45 09/02/21 20:41 09/03/21 05:40 Glucose (Fingerstick) 258 mg/dL (70-99) 179 mg/dL (70-99) 251 mg/dL (70-99) White Blood Count 4.2 x10^3/uL (4.0-11.0) Red Blood Count 4.22 x10^6/uL (4.30-5.70) Hemoglobin 12.7 g/dL (13.0-17.5) Hematocrit 37.5 % (39.0-53.0) Mean Corpuscular Volume 89 fL (79-100) Mean Corpuscular Hemoglobin 30 pg (25-35) Mean Corpuscular Hemoglobin Concent 34 g/dL (31-37) Red Cell Distribution Width 12.7 % (11.5-14.5) Platelet Count 224 x10^3/uL (140-400) Neutrophils (%) (Auto) 37 % (31-73) Lymphocytes (%) (Auto) 44 % (24-48) Monocytes (%) (Auto) 15 % (0-9) Eosinophils (%) (Auto) 4 % (0-3) Basophils (%) (Auto) 0 % (0-3) Neutrophils # (Auto) 1.5 x10^3/uL (1.8-7.7) Lymphocytes # (Auto) 1.8 x10^3/uL (1.0-4.8) Monocytes # (Auto) 0.6 x10^3/uL (0.0-1.1) Eosinophils # (Auto) 0.2 x10^3/uL (0.0-0.7) Basophils # (Auto) 0.0 x10^3/uL (0.0-0.2) Sodium Level 136 mmol/L (136-145) Potassium Level 3.9 mmol/L (3.5-5.1) Chloride Level 101 mmol/L (98-107) Carbon Dioxide Level 27 mmol/L (21-32) Anion Gap 8 (6-14) Blood Urea Nitrogen 9 mg/dL (8-26) Creatinine 1.0 mg/dL (0.7-1.3) Estimated GFR (Cockcroft-Gault) 102.9 Glucose Level 272 mg/dL (70-99) Calcium Level 8.3 mg/dL (8.5-10.1) Phosphorus Level 2.2 mg/dL (2.6-4.7) Magnesium Level 1.9 mg/dL (1.8-2.4) Test 09/03/21 07:47 09/03/21 11:36 Glucose (Fingerstick) 301 mg/dL (70-99) 228 mg/dL (70-99) Laboratory Tests Test 09/02/21 16:45 09/02/21 20:41 09/03/21 05:40 09/03/21 07:47 Glucose (Fingerstick) 179 mg/dL (70-99) 251 mg/dL (70-99) 301 mg/dL (70-99) White Blood Count 4.2 x10^3/uL (4.0-11.0) Red Blood Count 4.22 x10^6/uL (4.30-5.70) Hemoglobin 12.7 g/dL (13.0-17.5) Hematocrit 37.5 % (39.0-53.0) Mean Corpuscular Volume 89 fL (79-100) Mean Corpuscular Hemoglobin 30 pg (25-35) Mean Corpuscular Hemoglobin Concent 34 g/dL (31-37) Red Cell Distribution Width 12.7 % (11.5-14.5) Platelet Count 224 x10^3/uL (140-400) Neutrophils (%) (Auto) 37 % (31-73) Lymphocytes (%) (Auto) 44 % (24-48) Monocytes (%) (Auto) 15 % (0-9) Eosinophils (%) (Auto) 4 % (0-3) Basophils (%) (Auto) 0 % (0-3) Neutrophils # (Auto) 1.5 x10^3/uL (1.8-7.7) Lymphocytes # (Auto) 1.8 x10^3/uL (1.0-4.8) Monocytes # (Auto) 0.6 x10^3/uL (0.0-1.1) Eosinophils # (Auto) 0.2 x10^3/uL (0.0-0.7) Basophils # (Auto) 0.0 x10^3/uL (0.0-0.2) Sodium Level 136 mmol/L (136-145) Potassium Level 3.9 mmol/L (3.5-5.1) Chloride Level 101 mmol/L (98-107) Carbon Dioxide Level 27 mmol/L (21-32) Anion Gap 8 (6-14) Blood Urea Nitrogen 9 mg/dL (8-26) Creatinine 1.0 mg/dL (0.7-1.3) Estimated GFR (Cockcroft-Gault) 102.9 Glucose Level 272 mg/dL (70-99) Calcium Level 8.3 mg/dL (8.5-10.1) Phosphorus Level 2.2 mg/dL (2.6-4.7) Magnesium Level 1.9 mg/dL (1.8-2.4) Test 09/03/21 11:36 Glucose (Fingerstick) 228 mg/dL (70-99) Medications Current Medications Ondansetron HCl (Zofran) 8 mg 1X ONCE IVP Last administered on 09/02/21at 01:10; Start 09/02/21 at 01:00; Stop 09/02/21 at 01:01; Status DC Sodium Chloride 1,000 ml @ 1,000 mls/hr 1X ONCE IV Last administered on 09/02/21at 01:09; Start 09/02/21 at 01:00; Stop 09/02/21 at 01:59; Status DC Ondansetron HCl (Zofran) 4 mg STK-MED ONCE .ROUTE ; Start 09/02/21 at 00:59; Stop 09/02/21 at 01:00; Status DC Sodium Chloride 1,000 ml @ 1,000 mls/hr 1X ONCE IV Last administered on 09/02/21at 02:13; Start 09/02/21 at 02:00; Stop 09/02/21 at 02:59; Status DC Lorazepam (Ativan Inj) 2 mg 1X ONCE IVP Last administered on 09/02/21at 04:00; Start 09/02/21 at 03:45; Stop 09/02/21 at 03:46; Status DC Multivitamins 10 ml/Thiamine HCl 100 mg/Folic Acid 1 mg/Sodium Chloride 1,011.2 ml @ 1,000.088 mls/hr 1X ONCE IV Last administered on 09/02/21at 04:05; Start 09/02/21 at 04:00; Stop 09/02/21 at 05:00; Status DC Ondansetron HCl (Zofran) 4 mg PRN Q8HRS PRN IVP NAUSEA/VOMITING; Start 09/02/21 at 04:00; Stop 09/02/21 at 13:29; Status DC Sennosides (Senna) 17.2 mg PRN BID PRN PO CONSTIPATION; Start 09/02/21 at 08:30 Docusate Sodium (Colace) 100 mg PRN DAILY PRN PO HARD STOOLS; Start 09/02/21 at 08:30 Ondansetron HCl (Zofran) 4 mg PRN Q6HRS PRN IVP NAUSEA/VOMITING, 1ST CHOICE; Start 09/02/21 at 08:30 Dextrose (Dextrose 50%-Water Syringe) 12.5 gm PRN Q15MIN PRN IV SEE COMMENTS; Start 09/02/21 at 08:30; Stop 09/02/21 at 13:30; Status DC Acetaminophen (Tylenol) 650 mg PRN Q4HRS PRN PO TEMP OVER 100.4F OR MILD PAIN Last administered on 09/02/21at 20:48; Start 09/02/21 at 08:30 Lorazepam (Ativan) 0.5 mg PRN Q6HRS PRN PO ANXIETY / AGITATION; Start 09/02/21 at 08:30 Lorazepam (Ativan Inj) 0.25 mg PRN Q4HRS PRN IV ANXIETY / AGITATION; Start 09/02/21 at 08:30 Prochlorperazine Edisylate (Compazine) 10 mg PRN Q6HRS PRN IV NAUSEA/VOMITING- 2ND CHOICE; Start 09/02/21 at 08:30 Zolpidem Tartrate (Ambien) 2.5 mg PRN QHS PRN PO INSOMNIA Last administered on 09/02/21at 20:47; Start 09/02/21 at 08:30 Insulin Human Lispro (HumaLOG) 0-7 UNITS TIDWMEALS SQ Last administered on 09/03/21at 08:24; Start 09/02/21 at 12:00 Dextrose (Dextrose 50%-Water Syringe) 12.5 gm PRN Q15MIN PRN IV SEE COMMENTS; Start 09/02/21 at 11:15 Insulin Glargine (Lantus Syringe) 10 unit BID SQ Last administered on 09/03/21at 11:35; Start 09/02/21 at 21:00 Thiamine Mononitrate (Vitamin B-1) 100 mg DAILY PO Last administered on 09/03/21at 08:21; Start 09/03/21 at 09:00 Folic Acid (Folic Acid) 1 mg DAILY PO Last administered on 09/03/21at 08:21; Start 09/03/21 at 09:00 Active Scripts Active Reported Humalog (Insulin Lispro) 100 Unit/1 Ml Vial Unknown Dose SQ TIDWMEALS Vitals/I & O Vital Sign - Last 24 Hours 09/02/21 09/02/21 09/02/21 09/03/21 15:00 19:00 20:05 03:00 Temp 97.8 99.7 98.5 97.8 99.7 98.5 Pulse 60 90 80 Resp 18 20 18 B/P (MAP) 106/63 (77) 134/88 (103) 114/79 (91) Pulse Ox 92 97 96 O2 Delivery Room Air Room Air 09/03/21 09/03/21 07:00 08:00 Temp 98.3 98.3 Pulse 75 Resp 17 B/P (MAP) 162/92 (115) Pulse Ox 98 O2 Delivery Room Air Room Air Intake and Output 09/02/21 09/02/21 09/03/21 15:00 23:00 07:00 Intake Total 480 ml 360 ml 240 ml Output Total 1 ml Balance 480 ml 360 ml 239 ml Justicifation of Admission Dx: Justifications for Admission: Justification of Admission Dx: N/A JC MARINELLI MD Sep 03, 2021 12:01
[2021-09-03] MEDS ORDERED: INSU100I11 SQ (12:32)
--- NOTE | 2021-09-03 12:33 | DISCH ---
DISCHARGE INSTRUCTIONS Condition on Discharge Condition on Discharge: Stable Activity After Discharge Activity Instructions for Disc: Activity as tolerated Lifting Instructions after Dis: Do not lift >10 pounds Exercise Instruction after Dis: Walk 15 min, 3 x per day Driving Instructions after Dis: No driving for 6 months Diet after Discharge Diet after Discharge: Regular Follow-Up Follow up with: PCP within 2 weeks of discharge Follow Up With: Neurology as needed JESSICA WANG MD Sep 03, 2021 12:33
[2021-09-03] MEDS ORDERED: POTASSIUM & SODIUM PHOSPHATES PACKET. PO ONE (14:00)
--- NOTE | 2021-09-03 14:34 | RAD ---
MRI BRAIN WO History:Reason: new seizures, 09/03. Instructions: / History: Technique: Multiplanar, multi sequential MR imaging was performed of the brain without contrast. Comparison: CT September 02, 2021 Findings: Edema within the right anterior inferior paramedian frontal lobe with mild associated hemorrhage. Add itional focus of edema within the right lateral frontal lobe with mild associated hemorrhage (series 6 image 14). Additional foci of edema within the right anterior temporal lobe cortex (series 6 image 13 and 10). No mass effect. No acute infarct. No hydrocephalus. Imaged orbits are unremarkable. Small left sphenoid sinus mucous retention cyst. Mastoid air cells ar e clear. Impression: 1. Foci of edema within the right frontal lobe with associated small hemorrhage as well as additiona l foci of edema in the right temporal lobe, concerning for contusions given history of trauma. Recomm end follow-up. FOR INTERNAL CODING PURPOSES Critical result: Findings discussed with patient's nurse Camilla at 09/03/2021 2:28 PM. RESULT CODE: (C) Electronically signed by: Jevon Chao DO (09/03/2021 2:32 PM) [facility]
--- NOTE | 2021-09-03 15:00 | NUR ---
Patient returned to the unit from MRI, inquiring about discharge, informed that the results needed to be obtained prior to d/c.
--- NOTE | 2021-09-03 15:15 | NUR ---
DR. SIDDIQUI AT THE BEDSIDE WITH MRI RESULTS FOR THE PATIENT, PATIENT AND HIS MOTHER GIVEN THE RESULTS., OK TO DISCHARGE PER DR. SIDDIQUI.
--- NOTE | 2021-09-03 15:25 | NUR ---
DISCHARGE INSTRUCTIONS GIVEN, QUESTIONS AND CONCERNS ANSWERED, PATIENT VERBALIZED UNDERSTANDING OF DISCHARGE INFORMATION INCLUDING TAKING ALL MEDICATIONS INSTRUCTED AND FOLLOWING UP WITH HIS PRIMARY PROVIDER AND DR. SIDDIQUI INSTRUCTED.
--- NOTE | 2021-09-03 15:55 | NUR ---
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
== END 2021-09-03 15:55 | disposition home or self-care (01) | DRG 64 ==
LOC: ER 00:45 → ED HOLD 03:50 → 5 NORTH 04:57
PROVIDERS: ADMIT Student in an Organized Health Care Education/Training Program; ATTEND Student in an Organized Health Care Education/Training Program
DX: I61.1 Nontraumatic intracerebral hemorrhage in hemisphere, cortical (principal); G92.9 Unspecified toxic encephalopathy; G93.6 Cerebral edema; F10.239 Alcohol dependence with withdrawal, unspecified; R56.9 Unspecified convulsions; K52.9 Noninfective gastroenteritis and colitis, unspecified; E10.9 Type 1 diabetes mellitus without complications; F12.90 Cannabis use, unspecified, uncomplicated; J44.9 Chronic obstructive pulmonary disease, unspecified; Z79.4 Long term (current) use of insulin; F19.10 Other psychoactive substance abuse, uncomplicated; Z20.822 Contact with and (suspected) exposure to COVID-19
CPT/HCPCS: 36415; 70450; 70486; 70551; 72125; 80048; 80053; 80307; 82962; 83735; 83880; 84100; 84484; 85025; 87426; 93005; 95816; 96361; 96374; G0480; J1815; J2060; J2405; J3411; J3490; J7030; U0003; U0005; 99285-25; G0378